=== PATIENT | male | born 1970 | race Caucasian/White ===

== ENCOUNTER 2016-07-29 07:07 | Inpatient (IN) | payer OTHER ==
[~2016-07-29] VITALS: Ht 170.2 cm; Wt 120.5 kg
[~2016-07-29 07:07] MED LIST: CALC-451 PO; CHOL5000 PO; Fiber Well PO; MULT-516 PO
[2016-07-29] MEDS ORDERED: LACTATED RINGERS 1,000 ML IV SCH ×2 (08:01→23:43)
[2016-07-29 08:02] VITALS: BP 140/86
[2016-07-29] MEDS ORDERED: FENTANYL PF 250 MCG/5ML ONE (08:08)
[2016-07-29] MEDS ORDERED: MIDAZOLAM 1 MG/ML, 2ML ONE (08:08)
[2016-07-29] MEDS ORDERED: LIDOCAINE 1%, 2ML SQ PRN (08:30)
[2016-07-29] MEDS ORDERED: FENTANYL PF 100 MCG/2ML IV PRN (09:30)
[2016-07-29] MEDS ORDERED: PROMETHAZINE 25 MG/ML, 1ML IV PRN (09:30)
[2016-07-29] MEDS ORDERED: OXYcodone 5 MG/5 ML ORAL.SOL UDC PO PRN (09:30)
[2016-07-29] MEDS ORDERED: ONDANSETRON 2MG/ML, 2ML IVPush PRN ×2 (09:30→11:00)
[2016-07-29] MEDS ORDERED: MEPERIDINE/PF 25MG/0.5ML IVPush PRN (09:30)
[2016-07-29] MEDS ORDERED: BUPIVACAINE/PF-EPI 0.5% 1:200K IM ONE (10:03)
[2016-07-29] MEDS ORDERED: SCOPOLAMINE PATCH, 1.5MG PATCH.TD72 TD ONE ×2 (11:00→11:04)
[2016-07-29] MEDS ORDERED: PHENOL THROAT SPRAY BOTTLE MM PRN (11:00)
[2016-07-29] MEDS ORDERED: hydrALAzine 20 MG/ML, 1ML IVPush PRN (11:00)
[2016-07-29] MEDS ORDERED: LORazepam 2 MG/ML, 1ML IV PRN (11:00)
[2016-07-29] MEDS ORDERED: PROMETHAZINE 25 MG/ML, 1ML IM PRN (11:00)
[2016-07-29] MEDS ORDERED: ENALAPRILAT 1.25 MG/ML, 2ML IV PRN (11:00)
[2016-07-29] MEDS ORDERED: PROMETHAZINE 12.5 MG SUPP PR PRN (11:00)
[2016-07-29] MEDS ORDERED: DIPHENHYDRAMINE 50 MG/ML, 1ML IV PRN (11:00)
[2016-07-29] MEDS ORDERED: FENTANYL PF 100 MCG/2ML ONE (11:04)
[2016-07-29] MEDS ORDERED: OXYcodone 5 MG/5 ML ORAL.SOL UDC ONE (11:05)
[2016-07-29] MEDS ORDERED: PROMETHAZINE 25 MG/ML, 1ML ONE (11:08)
[2016-07-29] MEDS: LABETALOL 5MG/ML, 20ML IV PRN ×4 (11:13→12:25)
[2016-07-29] MEDS ORDERED: ONDANSETRON 2MG/ML, 2ML ONE ×2 (11:34→15:51)
[2016-07-29] MEDS ORDERED: hydrALAzine 20 MG/ML, 1ML ONE (11:34)
[2016-07-29] MEDS: hydrALAzine 20 MG/ML, 1ML IV PRN ×2 (11:35→12:04)
[2016-07-29] MEDS: LACTATED RINGERS 1,000 ML IV SCH ×2 (12:04→13:50)
[2016-07-29] MEDS ORDERED: HYDROmorphone 2 MG/ML, 1ML ONE (12:05)
[2016-07-29] MEDS: HYDROmorphone 1 MG/ML, 1ML IV PRN ×2 (12:07→12:24)
[2016-07-29 12:43] VITALS: BP 146/90
[2016-07-29] MEDS: FAMOTIDINE 20 MG/2 ML IVPush SCH ×2 (13:53→22:08)
[2016-07-29] MEDS ORDERED: DEXAMETHASONE 4 MG/ML, 1ML ONE (15:51)
[2016-07-29] MEDS ORDERED: LABETALOL 5MG/ML ONE (15:51)
[2016-07-29] MEDS ORDERED: PROPOFOL 10 MG/ML, 20ML ONE (15:51)
[2016-07-29] MEDS ORDERED: CEFAZOLIN 1,000 MG ONE (15:51)
[2016-07-29] MEDS ORDERED: GLYCOPYRROLATE 0.2MG/1ML ONE (15:51)
[2016-07-29] MEDS ORDERED: NEOSTIGMINE 1 MG/ML, 10ML ONE (15:51)
[2016-07-29] MEDS ORDERED: ROCURONIUM 10 MG/ML ONE (15:51)
[2016-07-29 16:00] VITALS: BP 164/105
[2016-07-29] MEDS: MORPHINE SULFATE 4 MG/ML, 1ML IVPush PRN ×2 (16:56→22:08)
[2016-07-29] MEDS ORDERED: CEFAZOLIN PMX 2GM/100ML 100 ML IV SCH (18:00)
[2016-07-29 18:52] VITALS: BP 129/86
[2016-07-29 23:31] VITALS: BP 139/85
[2016-07-30] MEDS: HYDROcodone/APAP 7.5-325MG/15ML UDC PO PRN ×3 (01:46→14:01)
[2016-07-30] MEDS: LACTATED RINGERS 1,000 ML IV SCH ×2 (01:47→08:00)
[2016-07-30] MEDS ORDERED: CEFAZOLIN PMX 2GM/50ML 50 ML IV ONE (02:00)
[2016-07-30 04:23] VITALS: BP 144/86
[2016-07-30 05:47] LABS: HEMOGLOBIN 16.4 g/dL (13.7-18.0)
[2016-07-30 06:05] LABS: BLOOD UREA NITROGEN 8 mg/dL (7-18)
[2016-07-30 06:53] VITALS: BP 136/87
[2016-07-30] MEDS: FAMOTIDINE 20 MG/2 ML IVPush SCH (08:20)
[2016-07-30 13:27] VITALS: BP 141/94
== END 2016-07-30 16:00 | disposition home or self-care (01) | DRG 621 ==
LOC: ORIP 07:07 → 4NOR 12:46 → DCLOUNGE 07-30 16:00
PROVIDERS: ADMIT Thoracic Surgery (Cardiothoracic Vascular Surgery); ATTEND Thoracic Surgery (Cardiothoracic Vascular Surgery)
PROC: 8E0W4CZ Robotic Assisted Procedure of Trunk Region, Percutaneous Endoscopic Approach (ICD-10-PCS; 2016-07-29)
PROC: 0DB64Z3 Excision of Stomach, Percutaneous Endoscopic Approach, Vertical (ICD-10-PCS; principal; 2016-07-29 09:30)
DX: E66.01 Morbid (severe) obesity due to excess calories (principal); M54.9 Dorsalgia, unspecified; G89.29 Other chronic pain; R06.83 Snoring; K64.9 Unspecified hemorrhoids; Z68.41 Body mass index [BMI] 40.0-44.9, adult; Z87.891 Personal history of nicotine dependence; Z98.890 Other specified postprocedural states
CPT/HCPCS: 36415; 80048; 82040; 85025; J0690; J1100; J1170; J2250; J2405; J2550; J2704; J2710; J3010; J3490; J0360; J7120; S0028

== ENCOUNTER → 2018-01-12 | Outpatient (CLI) | payer OTHER ==
[~2018-01-12] MED LIST changes: +OMEP20TA62 PO
== END | disposition home or self-care (01) ==
LOC: STAR 08:48
PROVIDERS: ATTEND Thoracic Surgery (Cardiothoracic Vascular Surgery)
DX: Z02.9 Encounter for administrative examinations, unspecified (principal)

== ENCOUNTER 2018-01-21 06:04 | Day surgery (SDC) | payer OTHER ==
[2018-01-12 10:56] VITALS: BP 129/83
[~2018-01-21] VITALS: Ht 170.2 cm; Wt 82.0 kg
[2018-01-21] MEDS ORDERED: LACTATED RINGERS 1,000 ML IV SCH ×2 (06:44→08:37)
[2018-01-21] MEDS ORDERED: BUPIVACAINE/PF-EPI 0.5% 1:200K ONE (07:01)
[2018-01-21] MEDS ORDERED: MIDAZOLAM 1 MG/ML, 2ML ONE (07:15)
[2018-01-21] MEDS ORDERED: GLYCOPYRROLATE 0.2MG/1ML, 5ML ONE (07:30)
[2018-01-21] MEDS ORDERED: CEFAZOLIN 1,000 MG ONE (07:30)
[2018-01-21] MEDS ORDERED: ROCURONIUM 10 MG/ML,10ML ONE (07:30)
[2018-01-21] MEDS ORDERED: DEXAMETHASONE 4 MG/ML, 1ML ONE (07:30)
[2018-01-21] MEDS ORDERED: PROPOFOL 10 MG/ML, 20ML ONE (07:30)
[2018-01-21] MEDS ORDERED: ONDANSETRON 2MG/ML, 2ML ONE (07:30)
[2018-01-21] MEDS ORDERED: NEOSTIGMINE 1 MG/ML, 10ML ONE (07:30)
[2018-01-21] MEDS ORDERED: ACETAMINOPHEN 325 MG TABLET PO PRN (08:00)
[2018-01-21] MEDS ORDERED: ALBUTEROL SULFATE 2.5 MG/3 ML NPPB PRN (08:00)
[2018-01-21] MEDS ORDERED: MEPERIDINE/PF 25MG/0.5ML IVPush PRN (08:00)
[2018-01-21] MEDS ORDERED: FENTANYL PF 100 MCG/2ML IV PRN (08:00)
[2018-01-21] MEDS ORDERED: DIAZEPAM 5 MG/ML, 2ML IVPush PRN (08:00)
[2018-01-21] MEDS ORDERED: HYDROmorphone 1 MG/ML, 1ML IV PRN (08:00)
[2018-01-21] MEDS ORDERED: hydrALAzine 20 MG/ML, 1ML IV PRN (08:00)
[2018-01-21] MEDS ORDERED: FENTANYL PF 250 MCG/5ML ONE (08:01)
[2018-01-21] MEDS ORDERED: BUPIVACAINE/PF-EPI 0.5% 1:200K INFIL ONE (08:04)
[2018-01-21] MEDS ORDERED: LABETALOL 5MG/ML, 20ML ONE (08:42)
[2018-01-21] MEDS: LABETALOL 5MG/ML, 20ML IV PRN ×2 (08:44→08:50)
[2018-01-21] MEDS ORDERED: HYDROcodone/APAP 5/325 TABLET PO PRN (09:00)
[2018-01-21] MEDS ORDERED: ACETAMINOPHEN 650 MG/20.3 ML UDC ONE (09:00)
[2018-01-21] MEDS ORDERED: HYDROmorphone 2 MG/ML, 1ML IVPush PRN (09:00)
[2018-01-21] MEDS ORDERED: ONDANSETRON 2MG/ML, 2ML IVPush PRN (09:00)
[2018-01-21] MEDS ORDERED: OXYcodone 5 MG/5 ML ORAL.SOL UDC ONE (09:00)
[2018-01-21] MEDS ORDERED: FENTANYL PF 100 MCG/2ML ONE (09:02)
[2018-01-21] MEDS: OXYcodone 5 MG/5 ML ORAL.SOL UDC PO PRN ×2 (09:03→10:54)
== END 2018-01-21 11:20 | disposition home or self-care (01) ==
LOC: OUT 06:04
PROVIDERS: ATTEND Thoracic Surgery (Cardiothoracic Vascular Surgery)
DX: K42.0 Umbilical hernia with obstruction, without gangrene (principal)
CPT/HCPCS: 49653; C1781; J0690; J1100; J2250; J2405; J2704; J2710; J3010; J3490; J7120; S2900

== ENCOUNTER 2020-12-01 11:20 | Emergency (ER) | payer OTHER ==
[~2020-12-01] VITALS: Ht 167.6 cm; Wt 93.1 kg
[~2020-12-01 11:20] MED LIST changes: +ASCO500T56 PO; +ASPI-963 PO
--- NOTE | 2020-12-01 12:25 | NUR ---
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
[2020-12-01] MEDS ORDERED: KETOROLAC 30 MG/1 ML IM ONE (13:00)
[2020-12-01] MEDS ORDERED: CYCLOBENZAPRINE 10 MG TABLET PO ONE (13:00)
[2020-12-01 13:18] LABS: BASOPHILS % (AUTO) 1 % (0-1); EOSINOPHILS % (AUTO) 6 % (1-7); LYMPHOCYTES % (AUTO) 27 % (22-44); MEAN CORPUSCULAR HEMOGLOBIN 31.4 pg (27.5-34.5); MEAN CORPUSCULAR HGB CONC 34.7 g/dL (33.2-36.2); MEAN PLATELET VOLUME 9.3 fL (7.4-10.4); MONOCYTES % (AUTO) 11 % (2-9); NEUTROPHILS % (AUTO) 56 % (42-75); PLATELET COUNT 204 x10^3/uL (130-400); RED CELL DISTRIBUTION WIDTH 14.1 % (9.4-14.8)
[2020-12-01 13:28] LABS: ALANINE AMINOTRANSFERASE 25 U/L (12-78); ALBUMIN 3.5 g/dL (3.4-5.0); ANION GAP 6 mmol/L (5-15); CALCIUM 8.3 mg/dL (8.5-10.1); CHLORIDE 108 mmol/L (98-107); CREATININE 0.86 mg/dL (0.7-1.3)
[2020-12-01 13:30] LABS: ALKALINE PHOSPHATASE 49 U/L (45-117); BILIRUBIN,TOTAL 0.3 mg/dL (0.2-1.0); TOTAL PROTEIN 6.7 g/dL (6.4-8.2)
[2020-12-01] MEDS ORDERED: CYCLOBENZAPRINE 10 MG TABLET ONE (13:51)
[2020-12-01] MEDS ORDERED: KETOROLAC 30 MG/1 ML ONE (13:51)
--- NOTE | 2020-12-01 13:58 | NUR ---
PT MED NOTED. PT AWARE OF PLAN FOR D/C BUT NEEDS TO WAIT 30MIN AFTER REC' MEDICATIONS. CALL LIGHT W/I REACH, VSS, NAD NOTED.
[2020-12-01 14:26] VITALS: BP 158/88
== END 2020-12-01 14:28 | disposition home or self-care (01) ==
LOC: ED 14:12
DX: M62.838 Other muscle spasm (principal); R42 Dizziness and giddiness; K21.9 Gastro-esophageal reflux disease without esophagitis
CPT/HCPCS: 36415; 73502; 80053; 85025; 96372; 99284; J1885